=== PATIENT | female | born 1930 | race Caucasian/White ===

== ENCOUNTER 2017-01-20 12:38 | Emergency (ER) | payer MEDICARE ==
[~2017-01-20] VITALS: Ht 149.9 cm; Wt 59.0 kg
[2017-01-20 12:40] VITALS: BP_SYST 156
[2017-01-20] MEDS ORDERED: SIMV10TA6 PO (12:46)
[2017-01-20] MEDS ORDERED: CALC1TAB26 PO (12:46)
[2017-01-20] MEDS ORDERED: LOSA25TA3 PO (12:46)
[2017-01-20] MEDS ORDERED: SERT25TA PO (12:46)
[2017-01-20] MEDS ORDERED: NOR10 PO (12:46)
[2017-01-20 13:13] LABS: BASOPHILS # (AUTO) 0.1 K/uL (0.0-0.2); BASOPHILS % (AUTO) 1.3 % (0.0-2.0); EOSINOPHILS # (AUTO) 0.1 K/uL (0.0-0.4); EOSINOPHILS % (AUTO) 1.1 % (0.0-4.0); HEMATOCRIT 28.3 % (36-48); HEMOGLOBIN 8.9 g/dL (12.0-16.0); LYMPHOCYTES # (AUTO) 0.7 K/uL (1.0-5.5); LYMPHOCYTES % (AUTO) 12.8 % (20.5-51.5); MEAN CORPUSCULAR HEMOGLOBIN 25 pg (27-31); MEAN CORPUSCULAR HGB CONC 32 % (32-36); MEAN CORPUSCULAR VOLUME 78 fL (79.0-98.0); MONOCYTES # (AUTO) 0.5 K/uL (0.0-1.0); MONOCYTES % (AUTO) 8.8 % (1.7-9.3); NEUTROPHILS # (AUTO) 4.1 K/uL (1.8-7.7); PLATELET COUNT (AUTO) 271 K/uL (130-430); RED BLOOD CELL COUNT(AUTO) 3.63 MIL/uL (4.2-6.2); RED CELL DISTRIBUTION WIDTH 16.8 % (9.0-15.0); WHITE BLOOD COUNT (AUTO) 5.5 K/uL (4.8-10.8)
[2017-01-20 13:22] LABS: ANION GAP 7 (5-15); CALCIUM 9.4 mg/dL (8.4-11.0); CHLORIDE 103 mmol/L (98-107); CREATININE 0.63 mg/dL (0.55-1.30); GLUCOSE 113 mg/dL (70-99); POTASSIUM 3.5 mmol/L (3.5-5.1); SODIUM SERUM 139 mmol/L (136-145); UREA NITROGEN, BLOOD 10 mg/dL (8-21)
[2017-01-20 13:24] LABS: PROTHROMBIN TIME 10.6 SECS (9.5-12.5)
[2017-01-20 13:27] LABS: ALANINE AMINOTRANSFERASE 15 U/L (12-78); ALBUMIN 3.8 g/dL (3.4-4.8); ASPARTATE AMINOTRANSFERASE 18 U/L (10-37); TOTAL BILIRUBIN 0.2 mg/dL (0.0-1.0); TOTAL PROTEIN, SERUM 7.3 g/dL (6.4-8.3)
[2017-01-20] MEDS ORDERED: PANTOPRAZOLE SODIUM 40 MG/VIAL (PROTONIX) IVP ONE (15:15)
[2017-01-20] MEDS ORDERED: DIPHENHYDRAMINE INJ 50 MG/ML VIAL IVP ONE (16:30)
[2017-01-20] MEDS ORDERED: MORPHINE 4 MG/ML INJ. SYRINGE IVP ONE (16:30)
[2017-01-20 17:28] VITALS: BP_SYST 140
== END 2017-01-20 17:00 | disposition short-term general hospital (02) ==
LOC: SED 12:40
DX: K92.2 Gastrointestinal hemorrhage, unspecified (principal); D64.9 Anemia, unspecified; I10 Essential (primary) hypertension; E78.5 Hyperlipidemia, unspecified; F32.9 Major depressive disorder, single episode, unspecified
CPT/HCPCS: 36415; 71010; 80053; 83880; 84484; 85025; 85610; 93005; 96374; 96375; 99285; C9113; J1200; J2270

== ENCOUNTER 2017-02-25 02:44 | Emergency (ER) | payer MEDICARE ==
[~2017-02-25] VITALS: Ht 149.9 cm; Wt 58.1 kg
[~2017-02-25 02:44] MED LIST: CALC1TAB26 PO; LOSA25TA3 PO; NOR10 PO; SERT25TA PO; SIMV10TA6 PO
[2017-02-25 02:46] VITALS: BP_SYST 164
[2017-02-25] MEDS ORDERED: MORPHINE 2 MG/ML INJ. SYRINGE IM ONE (03:45)
[2017-02-25 04:45] VITALS: BP_SYST 167
== END 2017-02-25 04:45 | disposition home or self-care (01) ==
LOC: SED 02:44
DX: G89.29 Other chronic pain (principal); M25.552 Pain in left hip; I10 Essential (primary) hypertension; M47.9 Spondylosis, unspecified; E78.5 Hyperlipidemia, unspecified; M19.90 Unspecified osteoarthritis, unspecified site; F32.9 Major depressive disorder, single episode, unspecified
CPT/HCPCS: 96372; 99283; J2270

== ENCOUNTER 2017-03-03 07:17 | Emergency (ER) | payer MEDICARE ==
[~2017-03-03] VITALS: Ht 149.9 cm; Wt 56.7 kg
[2017-03-03 07:17] VITALS: BP_SYST 166
[2017-03-03] MEDS ORDERED: HYDR-1189 PO (07:44)
[2017-03-03] MEDS ORDERED: PANT20TA2 PO (07:44)
[2017-03-03] MEDS ORDERED: KETOROLAC TROMETHAMINE 60 MG/2 ML VIAL IM ONE (08:00)
[2017-03-03] MEDS ORDERED: HYDROmorphone 1 MG INJ. 1 MG/ML AMPUL IVP ONE (09:15)
[2017-03-03 09:35] LABS: BASOPHILS % (AUTO) 0.7 % (0.0-2.0); EOSINOPHILS # (AUTO) 0.1 K/uL (0.0-0.4); EOSINOPHILS % (AUTO) 0.9 % (0.0-4.0); HEMATOCRIT 37.3 % (36-48); HEMOGLOBIN 12.1 g/dL (12.0-16.0); LYMPHOCYTES # (AUTO) 0.7 K/uL (1.0-5.5); LYMPHOCYTES % (AUTO) 11.3 % (20.5-51.5); MEAN CORPUSCULAR HEMOGLOBIN 25 pg (27-31); MEAN CORPUSCULAR HGB CONC 33 % (32-36); MEAN CORPUSCULAR VOLUME 78 fL (79.0-98.0); MONOCYTES # (AUTO) 0.6 K/uL (0.0-1.0); MONOCYTES % (AUTO) 9.8 % (1.7-9.3); NEUTROPHILS % (AUTO) 77.3 % (40.0-70.0); PLATELET COUNT (AUTO) 309 K/uL (130-430); RED BLOOD CELL COUNT(AUTO) 4.77 MIL/uL (4.2-6.2); WHITE BLOOD COUNT (AUTO) 6.4 K/uL (4.8-10.8)
[2017-03-03 09:40] LABS: ANION GAP 4 (5-15); CALCIUM 9.3 mg/dL (8.4-11.0); CHLORIDE 95 mmol/L (98-107); CREATININE 0.53 mg/dL (0.55-1.30); GLUCOSE 113 mg/dL (70-99); POTASSIUM 3.1 mmol/L (3.5-5.1); SODIUM SERUM 132 mmol/L (136-145); UREA NITROGEN, BLOOD 14 mg/dL (8-21)
[2017-03-03 09:45] LABS: ALANINE AMINOTRANSFERASE 16 U/L (12-78); ASPARTATE AMINOTRANSFERASE 17 U/L (10-37); TOTAL BILIRUBIN 0.2 mg/dL (0.0-1.0); TOTAL PROTEIN, SERUM 7.6 g/dL (6.4-8.3)
[2017-03-03] MEDS ORDERED: NACL 0.9% 1,000 ML IV ONE (10:00)
[2017-03-03] MEDS ORDERED: POTASSIUM CHLORIDE 20 MEQ TAB.PRT.SR PO ONE (10:00)
[2017-03-03 10:50] VITALS: BP_SYST 152
== END 2017-03-03 10:50 | disposition short-term general hospital (02) ==
LOC: SED 07:17
DX: M16.0 Bilateral primary osteoarthritis of hip (principal); E87.1 Hypo-osmolality and hyponatremia; E87.6 Hypokalemia; M19.90 Unspecified osteoarthritis, unspecified site; E78.5 Hyperlipidemia, unspecified; I10 Essential (primary) hypertension; Z79.899 Other long term (current) drug therapy
CPT/HCPCS: 36415; 73521; 80053; 85025; 96372; 96374; 99285; J1170; J1885

== ENCOUNTER 2017-10-04 20:53 | Emergency (ER) | payer MEDICARE ==
[~2017-10-04] VITALS: Ht 149.9 cm; Wt 54.4 kg
[~2017-10-04 20:53] MED LIST changes: +HYDR-1189 PO; +PANT20TA2 PO; -SERT25TA PO
[2017-10-04 21:21] VITALS: BP_SYST 152
[2017-10-04 22:45] LABS: BASOPHILS # (AUTO) 0.1 K/uL (0.0-0.2); EOSINOPHILS # (AUTO) 0.1 K/uL (0.0-0.4); EOSINOPHILS % (AUTO) 1.1 % (0.0-4.0); HEMOGLOBIN 11.7 g/dL (12.0-16.0); LYMPHOCYTES # (AUTO) 0.8 K/uL (1.0-5.5); LYMPHOCYTES % (AUTO) 12.5 % (20.5-51.5); MEAN CORPUSCULAR HEMOGLOBIN 28 pg (27-31); MEAN CORPUSCULAR HGB CONC 33 % (32-36); MEAN CORPUSCULAR VOLUME 85 fL (79.0-98.0); MONOCYTES # (AUTO) 0.8 K/uL (0.0-1.0); MONOCYTES % (AUTO) 12.4 % (1.7-9.3); NEUTROPHILS # (AUTO) 4.7 K/uL (1.8-7.7); PLATELET COUNT (AUTO) 237 K/uL (130-430); RED BLOOD CELL COUNT(AUTO) 4.14 MIL/uL (4.2-6.2); RED CELL DISTRIBUTION WIDTH 16.9 % (9.0-15.0); WHITE BLOOD COUNT (AUTO) 6.5 K/uL (4.8-10.8)
[2017-10-04 22:54] LABS: ANION GAP 6 (5-15); CREATININE 0.59 mg/dL (0.55-1.30); UREA NITROGEN, BLOOD 16 mg/dL (8-21)
[2017-10-04 22:59] LABS: ALANINE AMINOTRANSFERASE 16 U/L (12-78); ALBUMIN 3.8 g/dL (3.4-4.8); ASPARTATE AMINOTRANSFERASE 18 U/L (10-37); CALCIUM 9.6 mg/dL (8.4-11.0); CHLORIDE 95 mmol/L (98-107); GLUCOSE 88 mg/dL (70-99); TOTAL BILIRUBIN 0.3 mg/dL (0.0-1.0)
[2017-10-04] MEDS ORDERED: NACL 0.9% 1,000 ML IV ONE (23:15)
[2017-10-04] MEDS ORDERED: KCL 10 mEq in 50 mL (PREMIX) 50 ML IV ONE (23:15)
[2017-10-04] MEDS ORDERED: POTASSIUM CHLORIDE 20 MEQ TAB.PRT.SR PO ONE (23:15)
[2017-10-05 01:05] VITALS: BP_SYST 148
[2017-10-05 22:34] LABS: SODIUM SERUM 132 mmol/L (136-145)
[2017-10-05 22:35] LABS: POTASSIUM 2.7 mmol/L (3.5-5.1)
== END 2017-10-05 01:05 | disposition home or self-care (01) ==
LOC: SED 20:53
DX: E87.6 Hypokalemia (principal); I10 Essential (primary) hypertension; M47.9 Spondylosis, unspecified; M19.90 Unspecified osteoarthritis, unspecified site; E78.5 Hyperlipidemia, unspecified; F32.9 Major depressive disorder, single episode, unspecified; Z79.899 Other long term (current) drug therapy
CPT/HCPCS: 36415; 80053; 85025; 93005; 96365; 99285; J3480; J7030